=== PATIENT | female | born 1950 | race Caucasian/White ===

== ENCOUNTER 2019-11-15 20:03 | Inpatient (IN) | payer MEDICARE, BC ==
[~2019-11-15] VITALS: Ht 160 cm; Wt 50.0 kg
[2019-11-15] MEDS ORDERED: CefTRIAXone 2gm/D5W 50ml 50 ML IV ONE (20:25)
[2019-11-15] MEDS ORDERED: normal saline 1000ML IV soln IV ONE (20:25)
[2019-11-15] MEDS ORDERED: azithromycin/NS 500mg/250ml 250 ML IV ONE (20:30)
[2019-11-15 20:41] LABS: ALANINE AMINOTRANSFERASE 114 U/L (12-78); ALBUMIN 2.5 G/DL (3.4-5.0); ALBUMIN/GLOBULIN RATIO 0.8 (1.1-1.5); ALKALINE PHOSPHATASE 63 IU/L (46-116); ANION GAP 5 (8-16); ASPARTATE AMINO TRANSFERASE 88 U/L (10-37); BILIRUBIN,TOTAL 0.8 MG/DL (0.1-1.0); BLOOD UREA NITROGEN 11 MG/DL (7-18); BUN/CREATININE RATIO 12.5 (6.6-38.0); CALCIUM 7.8 MG/DL (8.5-10.1); CHLORIDE 103 MMOL/L (99-107); CREATININE 0.88 MG/DL (0.40-0.90); GLUCOSE 80 MG/DL (70-104); SODIUM 135 MMOL/L (135-145); TOTAL CARBON DIOXIDE 27.4 MMOL/L (24-32); TOTAL PROTEIN 5.5 G/DL (6.4-8.2); eGFR 64 ML/MIN
[2019-11-15 20:42] LABS: BASOPHILS % (AUTO) 0.5 % (0-1); EOSINOPHILS % (AUTO) 0.3 % (0-6); HEMATOCRIT 35.1 % (35.0-45.0); HEMOGLOBIN 12.3 g/dl (12.0-16.0); LYMPHOCYTES # (AUTO) 0.7 X10'3 (1.1-4.8); LYMPHOCYTES % (AUTO) 7.1 % (21-51); MEAN CORPUSCULAR HEMOGLOBIN 32.7 PG (27.0-31.0); MEAN CORPUSCULAR HGB CONC 35.1 g/dL (33.0-36.5); MEAN CORPUSCULAR VOLUME 93.2 FL (78-98); MEAN PLATELET VOLUME 8.7 FL (7.4-10.4); MONOCYTES # (AUTO) 1.2 X10'3 (0-0.9); MONOCYTES % (AUTO) 12.6 % (2-12); NEUTROPHILS # (AUTO) 7.4 X10'3 (1.8-7.7); NEUTROPHILS % (AUTO) 79.5 % (42-75); PLATELET COUNT 115 X10'3 (140-440); RED BLOOD COUNT 3.76 X10'6 (4.20-5.60); WHITE BLOOD COUNT 9.3 X10'3 (4.5-11.0)
[2019-11-15] MEDS ORDERED: oseltamivir phos 75mg capsule PO ONE (21:05)
[2019-11-15 21:25] LABS: CLARITY,URINE SLIGHTLY CLOUDY (Clear); COLOR,URINE YELLOW (Yellow); GLUCOSE, URINE NEGATIVE (Neg); KETONES,URINE NEGATIVE (Neg); LEUKOCYTE ESTERASE ,URINE NEGATIVE (Neg); NITRITES, URINE NEGATIVE (Neg); OCCULT BLOOD,URINE NEGATIVE (Neg); PH,URINE 6.5 (4.8-8.0); PROTEIN,URINE NEGATIVE (Neg); UROBILINOGEN,URINE 0.2 E.U/dL (0.2-1.0)
[2019-11-15 21:35] LABS: UA COLLECTION TYPE STRAIGHT CATH
[2019-11-15 21:39] LABS: BACTERIA,URINE NONE SEEN /HPF (Neg); MUCUS STRANDS FEW /LPF (Neg); RBC,URINE 0-2 /HPF (0-2); SQUAMOUS EPITHELIAL CELL,UR FEW /LPF (FEW); WBC,URINE 0-4 /HPF (0-4)
[2019-11-15 21:40] LABS: HYALINE CASTS 0-3 /LPF (NEGATIVE); RENAL CELLS, URINE FEW /HPF
[2019-11-15] MEDS ORDERED: RIBO1POW3 PO (22:10)
[2019-11-15] MEDS ORDERED: PROG100C16 PO (22:10)
[2019-11-15] MEDS ORDERED: MULT-1133 PO (22:10)
[2019-11-15] MEDS ORDERED: EST1T PO (22:10)
[2019-11-15] MEDS ORDERED: TEMA22.53 PO (22:10)
[2019-11-15] MEDS ORDERED: LIDO1ADH67 TD (22:10)
[2019-11-15] MEDS ORDERED: BUPR300T53 PO (22:10)
[2019-11-15] MEDS ORDERED: OMEG-143 PO (22:10)
[2019-11-15] MEDS ORDERED: GABA-532 PO ×2 (22:10)
[2019-11-15] MEDS ORDERED: PYRI50TA13 PO (22:10)
[2019-11-15] MEDS ORDERED: FEXO180T94 PO (22:10)
[2019-11-15] MEDS ORDERED: PHYT100T PO (22:10)
[2019-11-15] MEDS ORDERED: CHON100P3 PO (22:10)
[2019-11-15] MEDS ORDERED: TAPE75TA2 PO (22:10)
[2019-11-15] MEDS ORDERED: TURM538C PO (22:10)
[2019-11-15] MEDS ORDERED: QUER1POW PO (22:10)
[2019-11-15] MEDS ORDERED: MAGN400C PO (22:10)
[2019-11-15] MEDS ORDERED: OSC500T PO (22:10)
[2019-11-15] MEDS ORDERED: GLUC1TAB9 PO (22:10)
[2019-11-15] MEDS ORDERED: ASCO500C15 PO (22:10)
[2019-11-15] MEDS ORDERED: LORA-269 PO (22:10)
[2019-11-15] MEDS ORDERED: CYAN100019 PO (22:10)
[2019-11-15] MEDS ORDERED: CHOL400T14 PO (22:10)
[2019-11-15] MEDS ORDERED: magnesium hydroxide 30ml (MOM) UD suspension PO PRN (22:50)
[2019-11-15] MEDS ORDERED: morphine 2 MG/ML inj. syringe IV PRN ×2 (22:50)
[2019-11-15] MEDS ORDERED: mag hydrox/Alum hydrox/simeth 30ml oral suspension PO PRN (22:50)
[2019-11-15] MEDS ORDERED: magnesium 4gm in 100ml NS 100 ML IV PRN (22:50)
[2019-11-15] MEDS ORDERED: potassium Cl 20 mEq SR tablet PO PRN ×2 (22:50)
[2019-11-15] MEDS ORDERED: magnesium Cl slow-release 64mg tablet PO PRN (22:50)
[2019-11-15] MEDS ORDERED: ondansetron/PF 4mg/2ml inj IV PRN (22:50)
[2019-11-15] MEDS ORDERED: magnesium 2GM in 50ml NS 50 ML IV PRN (22:50)
[2019-11-15] MEDS ORDERED: potassium CL 10mEq/100ml bag 100 ML IV PRN ×2 (22:50)
[2019-11-15] MEDS ORDERED: temazepam 15mg capsule PO ONE (23:00)
--- NOTE | 2019-11-15 23:10 | NUR ---
Patient in room [facility]. I have received report from Yfn Parada Rn and had the opportunity to ask questions and will assume patient care upon arrival to the room. Addendum: 11/16/19 at 0145 by Raquel Garza RN Amended: Links added.
--- NOTE | 2019-11-15 23:15 | NUR ---
pt arrived to the floor and transferred from [facility] to bed with slide board and 4 people. tolerated well. then arrived to the room.
[2019-11-16] VITALS: BP 114/60
--- NOTE | 2019-11-16 00:40 | NUR ---
medicated for sleep pt now after numerous reminders not to take 02 off.
--- NOTE | 2019-11-16 02:09 | NUR ---
resting eyes closed with in reclining chair next to her bed. bed alarm on as pt forgetful and impulsive.
--- NOTE | 2019-11-16 03:23 | NUR ---
PT PUT ON FRACTURE LÓPEZ TO VOID AND UNABLE TO DO SO. BLADER SCAN FOR 152CC AND PT DECIDED WE WOULD TRY AGAIN UNABLE TO GET TO BEDSIDE COMMODE DUE TO PT TOO WEAL TO DO SO.
--- NOTE | 2019-11-16 04:45 | NUR ---
pt requestedto get up and walk to brp. pt too weak assisted up to bedside commode with 2 people so weak needed the 2. had large bm without urine. pt then bladder scanned to check for residual.
--- NOTE | 2019-11-16 05:10 | NUR ---
bladder scanned for 250cc of urine.
--- NOTE | 2019-11-16 05:12 | NUR ---
pt coughing non productively.
--- NOTE | 2019-11-16 05:25 | NUR ---
remains at bedside.
--- NOTE | 2019-11-16 06:09 | NUR ---
Problems reprioritized. Patient report given, questions answered & plan of care reviewed with YUMI MCKEON. Addendum: 11/16/19 at 0609 by Raquel Garza RN Amended: Links added.
--- NOTE | 2019-11-16 06:25 | NUR ---
Patient in room [facility]. I have received report from LINDA MOTTA and had the opportunity to ask questions and assume patient care.
[2019-11-16 06:30] LABS: BASOPHILS % (AUTO) 0.4 % (0-1); EOSINOPHILS % (AUTO) 0.1 % (0-6); HEMATOCRIT 36.2 % (35.0-45.0); HEMOGLOBIN 12.7 g/dl (12.0-16.0); LYMPHOCYTES # (AUTO) 0.7 X10'3 (1.1-4.8); LYMPHOCYTES % (AUTO) 7.5 % (21-51); MEAN CORPUSCULAR HEMOGLOBIN 32.8 PG (27.0-31.0); MEAN CORPUSCULAR VOLUME 93.8 FL (78-98); MEAN PLATELET VOLUME 9.2 FL (7.4-10.4); MONOCYTES % (AUTO) 10.5 % (2-12); NEUTROPHILS # (AUTO) 8.1 X10'3 (1.8-7.7); NEUTROPHILS % (AUTO) 81.5 % (42-75); PLATELET COUNT 127 X10'3 (140-440); RED BLOOD COUNT 3.86 X10'6 (4.20-5.60)
[2019-11-16 06:49] LABS: ALBUMIN 2.5 G/DL (3.4-5.0); ANION GAP 8 (8-16); BLOOD UREA NITROGEN 11 MG/DL (7-18); BUN/CREATININE RATIO 10.5 (6.6-38.0); CALCIUM 8.1 MG/DL (8.5-10.1); CHLORIDE 103 MMOL/L (99-107); CREATININE 1.05 MG/DL (0.40-0.90); GLUCOSE 74 MG/DL (70-104); POTASSIUM 4.2 MMOL/L (3.5-5.1); SODIUM 135 MMOL/L (135-145); TOTAL CARBON DIOXIDE 24.2 MMOL/L (24-32); eGFR 52 ML/MIN
[2019-11-16 07:00] VITALS: BP 84/54
[2019-11-16] MEDS ORDERED: GLUCOSAMINE HCL PO SCH (08:00)
[2019-11-16] MEDS: TAPENTADOL HCL PO SCH ×3 (08:00→22:23)
[2019-11-16] MEDS: K and/or MAG REPLACEMENT MC SCH ×2 (08:00→20:00)
[2019-11-16] MEDS ORDERED: QUERCETIN DIHYDRATE PO SCH (08:00)
[2019-11-16] MEDS ORDERED: calcium carbonate 500mg tablet PO SCH (08:00)
[2019-11-16] MEDS ORDERED: CHONDROITIN SULFATE A SODIUM PO SCH (08:00)
[2019-11-16] MEDS ORDERED: [UNRECOGNIZED DRUG - OTHER] PO SCH (08:00)
[2019-11-16] MEDS ORDERED: PHYTONADIONE PO SCH ×2 (08:00→08:30)
[2019-11-16] MEDS: LIDOcaine 5% patch TP SCH (08:00)
[2019-11-16] MEDS ORDERED: MSM PO SCH (08:00)
[2019-11-16] MEDS: PROGESTERONE MICRONIZED 100 MG PO SCH (08:00)
[2019-11-16] MEDS ORDERED: TURMERIC ROOT EXTRACT 1000 MG PO SCH (08:00)
[2019-11-16] MEDS: metroNIDAZOLE-Flagyl 500mg/NS 100 ML IV SCH ×2 (08:28→16:30)
[2019-11-16] MEDS: enoxaparin 40mg/0.4ml syringe SQ SCH (08:29)
[2019-11-16] MEDS: BUPROPION PO SCH (08:30)
[2019-11-16] MEDS: PHYTONADIONE PO SCH (08:30)
[2019-11-16] MEDS: magnesium oxide 400mg tablet PO SCH ×2 (08:31→21:03)
[2019-11-16] MEDS: multivitamins, therapeutics tablet PO SCH (08:31)
[2019-11-16] MEDS: OMEGA-3/DHA/EPA/FISH OIL 1 EACH CAPSULE.DR PO SCH (08:31)
[2019-11-16] MEDS: LORazepam 1 MG tablet PO SCH ×3 (08:31→21:04)
[2019-11-16] MEDS: vitamin D (cholecalciferol) 1,000 unit tablet PO SCH (08:31)
[2019-11-16] MEDS: pyridoxine 50mg tablet PO SCH (08:32)
[2019-11-16] MEDS: gabapentin 300mg capsule PO SCH ×2 (08:32→21:01)
[2019-11-16] MEDS: ascorbic acid 500mg tablet PO SCH ×2 (08:32→21:00)
[2019-11-16] MEDS: cyanocobalamin 500mcg tablet PO SCH (08:32)
[2019-11-16 11:00] VITALS: BP 88/44
[2019-11-16] MEDS: normal saline 1000ml 1,000 ML IV SCH (11:42)
[2019-11-16] MEDS: calcium carbonate 500mg tablet PO SCH ×4 (11:42→20:59)
[2019-11-16] MEDS: levoFLOXACIN-Levaquin 750MG/D5 150 ML IV SCH ×2 (12:04→16:36)
--- NOTE | 2019-11-16 16:37 | NUR ---
[facility] MED ADMINISTRATION: I DID NOT RELEASE CLAMP AND MED WAS NOT INFUSED
--- NOTE | 2019-11-16 18:25 | NUR ---
Problems reprioritized. Patient report given, questions answered & plan of care reviewed with LINDA LOPEZ.
--- NOTE | 2019-11-16 18:54 | NUR ---
Patient in room [facility]. I have received report from LINDA Soto and had the opportunity to ask questions and assume patient care.
[2019-11-16 20:00] VITALS: BP 106/60
[2019-11-16] MEDS ORDERED: CefTRIAXone 2gm/D5W 50ml 50 ML IV SCH (20:00)
[2019-11-16] MEDS: lactobacillus rhamnosus 10,000 MMU CELLS/CAPSULE PO SCH (20:58)
[2019-11-16] MEDS ORDERED: azithromycin 250mg tablet PO SCH (21:00)
[2019-11-16] MEDS: loratadine 10mg tablet PO SCH (21:03)
[2019-11-16] MEDS ORDERED: vancomycin/NS 1 GM ADD-VANTAGE 250 ML X 1 DOSE IV ONE (22:10)
[2019-11-16] MEDS: TEMAZEPAM PO SCH (22:23)
[2019-11-16] MEDS ORDERED: levoFLOXACIN-Levaquin 750MG/D5 150 ML IV SCH (22:23)
[2019-11-17] VITALS: BP 106/56
[2019-11-17] MEDS: piperacillin/tazo 3.375gm/50ml 50 ML IV SCH ×4 (00:20→21:46)
[2019-11-17] MEDS: normal saline 1000ml 1,000 ML IV SCH ×3 (02:11→18:51)
[2019-11-17 05:17] LABS: BASOPHILS % (AUTO) 0.6 % (0-1); EOSINOPHILS # (AUTO) 0.1 X10'3 (0-0.9); EOSINOPHILS % (AUTO) 0.7 % (0-6); HEMATOCRIT 31.9 % (35.0-45.0); HEMOGLOBIN 11.2 g/dl (12.0-16.0); LYMPHOCYTES # (AUTO) 0.7 X10'3 (1.1-4.8); LYMPHOCYTES % (AUTO) 8.8 % (21-51); MEAN CORPUSCULAR HEMOGLOBIN 32.3 PG (27.0-31.0); MEAN CORPUSCULAR HGB CONC 35.1 g/dL (33.0-36.5); MEAN CORPUSCULAR VOLUME 92.2 FL (78-98); MEAN PLATELET VOLUME 8.4 FL (7.4-10.4); MONOCYTES % (AUTO) 11.5 % (2-12); NEUTROPHILS # (AUTO) 6.6 X10'3 (1.8-7.7); NEUTROPHILS % (AUTO) 78.4 % (42-75); PLATELET COUNT 141 X10'3 (140-440); RED BLOOD COUNT 3.46 X10'6 (4.20-5.60); RED CELL DISTRIBUTION WIDTH 13.3 % (11.5-14.5); WHITE BLOOD COUNT 8.4 X10'3 (4.5-11.0)
[2019-11-17 05:33] LABS: ALBUMIN 1.9 G/DL (3.4-5.0); ANION GAP 7 (8-16); BLOOD UREA NITROGEN 9 MG/DL (7-18); CHLORIDE 107 MMOL/L (99-107); CREATININE 0.75 MG/DL (0.40-0.90); GLUCOSE 89 MG/DL (70-104); MAGNESIUM 1.9 MG/DL (1.5-2.4); POTASSIUM 4.1 MMOL/L (3.5-5.1); SODIUM 138 MMOL/L (135-145); TOTAL CARBON DIOXIDE 24.3 MMOL/L (24-32); eGFR 77 ML/MIN
--- NOTE | 2019-11-17 06:24 | NUR ---
Problems reprioritized. Patient report given, questions answered & plan of care reviewed with LINDA Soto.
--- NOTE | 2019-11-17 06:45 | NUR ---
Patient in room [facility]. I have received report from LINDA LOPEZ and had the opportunity to ask questions and assume patient care.
--- NOTE | 2019-11-17 06:59 | NUR ---
Patient in room [facility]. I have received report from LINDA LOPEZ and had the opportunity to ask questions and assume patient care.
[2019-11-17 07:00] VITALS: BP 100/54
[2019-11-17] MEDS: calcium carbonate 500mg tablet PO SCH ×4 (08:00→21:45)
[2019-11-17] MEDS: TAPENTADOL HCL PO SCH ×3 (08:00→21:46)
[2019-11-17] MEDS: LORazepam 1 MG tablet PO SCH ×3 (08:00→21:45)
[2019-11-17] MEDS: K and/or MAG REPLACEMENT MC SCH ×2 (08:00→20:00)
[2019-11-17] MEDS ORDERED: PHYTONADIONE PO SCH (08:00)
[2019-11-17] MEDS: LIDOcaine 5% patch TP SCH (08:00)
[2019-11-17] MEDS ORDERED: iohexol 350MG/ML 100ml bottle IV ONE (09:54)
[2019-11-17 11:00] VITALS: BP 105/54
[2019-11-17] MEDS: BUPROPION PO SCH (11:19)
[2019-11-17] MEDS: PHYTONADIONE PO SCH (11:20)
[2019-11-17] MEDS: PROGESTERONE MICRONIZED 100 MG PO SCH (11:21)
[2019-11-17] MEDS: multivitamins, therapeutics tablet PO SCH (11:22)
[2019-11-17] MEDS: ascorbic acid 500mg tablet PO SCH ×2 (11:23→20:08)
[2019-11-17] MEDS: cyanocobalamin 500mcg tablet PO SCH (11:23)
[2019-11-17] MEDS: pyridoxine 50mg tablet PO SCH (11:23)
[2019-11-17] MEDS: enoxaparin 40mg/0.4ml syringe SQ SCH (11:28)
[2019-11-17] MEDS: magnesium oxide 400mg tablet PO SCH ×2 (11:28→20:08)
[2019-11-17] MEDS: lactobacillus rhamnosus 10,000 MMU CELLS/CAPSULE PO SCH ×2 (11:28→20:08)
[2019-11-17] MEDS: OMEGA-3/DHA/EPA/FISH OIL 1 EACH CAPSULE.DR PO SCH (11:29)
[2019-11-17] MEDS: gabapentin 300mg capsule PO SCH ×2 (11:29→21:45)
[2019-11-17] MEDS: vitamin D (cholecalciferol) 1,000 unit tablet PO SCH (11:52)
[2019-11-17] MEDS: VANCOMYCIN 750MG IV in NS 250 ML IV SCH (12:30)
--- NOTE | 2019-11-17 18:47 | NUR ---
Problems reprioritized. Patient report given, questions answered & plan of care reviewed with LINDA ARREGUIN.
--- NOTE | 2019-11-17 18:47 | NUR ---
Patient in room [facility]. I have received report from LINDA Soto and had the opportunity to ask questions and assume patient care. Addendum: 11/17/19 at 1847 by Petra Franco RN Amended: Links added.
[2019-11-17 20:00] VITALS: BP 121/66
[2019-11-17] MEDS: loratadine 10mg tablet PO SCH (21:45)
[2019-11-17] MEDS: TEMAZEPAM PO SCH (21:46)
[2019-11-17] MEDS ORDERED: VANCOMYCIN 750MG IV in NS 250 ML IV SCH (22:00)
[2019-11-18] VITALS: BP 120/69
[2019-11-18] MEDS: VANCOMYCIN 750MG IV in NS 250 ML IV SCH (00:28)
[2019-11-18] MEDS: normal saline 1000ml 1,000 ML IV SCH ×2 (04:30→14:42)
[2019-11-18] MEDS: piperacillin/tazo 3.375gm/50ml 50 ML IV SCH (04:54)
[2019-11-18 05:35] LABS: BASOPHILS # (AUTO) 0.1 X10'3 (0-0.2); EOSINOPHILS # (AUTO) 0.1 X10'3 (0-0.9); EOSINOPHILS % (AUTO) 1.3 % (0-6); HEMATOCRIT 35.3 % (35.0-45.0); HEMOGLOBIN 12.3 g/dl (12.0-16.0); LYMPHOCYTES # (AUTO) 1.2 X10'3 (1.1-4.8); LYMPHOCYTES % (AUTO) 13.3 % (21-51); MEAN CORPUSCULAR HEMOGLOBIN 32.5 PG (27.0-31.0); MEAN CORPUSCULAR VOLUME 92.8 FL (78-98); MEAN PLATELET VOLUME 7.9 FL (7.4-10.4); MONOCYTES % (AUTO) 11.2 % (2-12); NEUTROPHILS # (AUTO) 6.9 X10'3 (1.8-7.7); NEUTROPHILS % (AUTO) 73.2 % (42-75); PLATELET COUNT 189 X10'3 (140-440); RED CELL DISTRIBUTION WIDTH 13.3 % (11.5-14.5); WHITE BLOOD COUNT 9.4 X10'3 (4.5-11.0)
[2019-11-18 05:48] LABS: ANION GAP 6 (8-16); BLOOD UREA NITROGEN 11 MG/DL (7-18); BUN/CREATININE RATIO 13.8 (6.6-38.0); CALCIUM 8.6 MG/DL (8.5-10.1); CHLORIDE 108 MMOL/L (99-107); GLUCOSE 75 MG/DL (70-104); LACTATE DEHYDROGENASE 268 U/L (81-234); MAGNESIUM 1.9 MG/DL (1.5-2.4); POTASSIUM 3.8 MMOL/L (3.5-5.1); SODIUM 139 MMOL/L (135-145); TOTAL CARBON DIOXIDE 25.5 MMOL/L (24-32); eGFR 71 ML/MIN
--- NOTE | 2019-11-18 06:24 | NUR ---
Problems reprioritized. Patient report given, questions answered & plan of care reviewed with LINDA Lamb.
--- NOTE | 2019-11-18 06:26 | NUR ---
Patient in room [facility]. I have received report from Jody Ray RN and had the opportunity to ask questions and assume patient care.
[2019-11-18 07:30] VITALS: BP 99/47
[2019-11-18] MEDS: multivitamins, therapeutics tablet PO SCH (07:45)
[2019-11-18] MEDS: cyanocobalamin 500mcg tablet PO SCH (07:45)
[2019-11-18] MEDS: magnesium oxide 400mg tablet PO SCH ×2 (07:45→20:56)
[2019-11-18] MEDS: gabapentin 300mg capsule PO SCH ×2 (07:45→20:56)
[2019-11-18] MEDS: OMEGA-3/DHA/EPA/FISH OIL 1 EACH CAPSULE.DR PO SCH (07:45)
[2019-11-18] MEDS: lactobacillus rhamnosus 10,000 MMU CELLS/CAPSULE PO SCH ×2 (07:45→20:55)
[2019-11-18] MEDS: vitamin D (cholecalciferol) 1,000 unit tablet PO SCH (07:46)
[2019-11-18] MEDS: calcium carbonate 500mg tablet PO SCH ×4 (07:46→20:56)
[2019-11-18] MEDS: LORazepam 1 MG tablet PO SCH ×3 (07:46→20:55)
[2019-11-18] MEDS: ascorbic acid 500mg tablet PO SCH ×2 (07:46→20:56)
[2019-11-18] MEDS: pyridoxine 50mg tablet PO SCH (07:46)
[2019-11-18] MEDS: BUPROPION PO SCH (07:47)
[2019-11-18] MEDS: PROGESTERONE MICRONIZED 100 MG PO SCH (07:47)
[2019-11-18] MEDS: PHYTONADIONE PO SCH (07:48)
[2019-11-18] MEDS: LIDOcaine 5% patch TP SCH (08:00)
[2019-11-18] MEDS: K and/or MAG REPLACEMENT MC SCH ×2 (08:00→20:00)
[2019-11-18] MEDS: enoxaparin 40mg/0.4ml syringe SQ SCH (08:00)
[2019-11-18] MEDS: benzonatate 100mg capsule PO PRN ×2 (08:15→20:55)
[2019-11-18] MEDS: TAPENTADOL HCL PO SCH ×4 (09:16→22:09)
[2019-11-18 11:21] VITALS: BP 99/47
[2019-11-18 11:30] VITALS: BP 104/52
[2019-11-18 11:46] VITALS: BP 111/64
--- NOTE | 2019-11-18 12:12 | NUR ---
Patient finished thoracentesis procedure, vital signs stable at 98.2 temp, HR at 70, RR 16, O2 at 95% on 2 L O2, BP 106/61 and reports no pain. patient tolerated well.
[2019-11-18 12:29] LABS: BFSOURCE RIGHT PLEURAL FLD; PLEURAL FLUID PH 7.448 (7.63-7.65)
[2019-11-18] MEDS ORDERED: levoFLOXACIN-Levaquin 750MG/D5 150 ML IV SCH (12:30)
[2019-11-18 12:37] LABS: GLUCOSE,BODY FLUID 95 MG/DL; LDH,BODY FLUID 191 U/L
[2019-11-18 13:28] LABS: BASOPHILS,BODY FLUID 1 %; LYMPHOCYTES,BODY FLUID 43 %; MONOCYTES,BODY FLUID 4 %; NEUTROPHILS,BODY FLUID 52 %
[2019-11-18 13:36] LABS: BFAPPEAR CLOUDY
[2019-11-18 13:37] LABS: BFCOLOR OTHER
[2019-11-18 13:38] LABS: BF RBC COUNT 7300 /CU MM; BF WBC COUNT 260 /CU MM (0-1000); BFVOLUME 58 ML
[2019-11-18 13:50] LABS: TOTAL PROTEIN,BODY FLUID < 2.0 G/DL
[2019-11-18] MEDS: levoFLOXACIN 750MG TABLET PO SCH (16:19)
[2019-11-18] MEDS ORDERED: albuterol 2.5 MG/3 ML nebule NEB PRN (16:25)
[2019-11-18 18:00] VITALS: BP 169/93
--- NOTE | 2019-11-18 18:20 | NUR ---
Patient in room [facility]. I have received report from LINDA Casillas and had the opportunity to ask questions and assume patient care.
[2019-11-18] MEDS: loratadine 10mg tablet PO SCH (20:56)
[2019-11-18] MEDS: TEMAZEPAM PO SCH (22:09)
[2019-11-18] MEDS ORDERED: VANCOMYCIN LEVEL IV ONE (23:30)
[2019-11-19 00:45] VITALS: BP 119/71
[2019-11-19] MEDS: normal saline 1000ml 1,000 ML IV SCH ×2 (03:06→15:50)
[2019-11-19] MEDS: benzonatate 100mg capsule PO PRN ×2 (05:33→21:02)
[2019-11-19 06:15] LABS: BASOPHILS % (AUTO) 0.6 % (0-1); EOSINOPHILS # (AUTO) 0.1 X10'3 (0-0.9); HEMATOCRIT 31.8 % (35.0-45.0); HEMOGLOBIN 11.1 g/dl (12.0-16.0); MEAN CORPUSCULAR HEMOGLOBIN 32.1 PG (27.0-31.0); MEAN CORPUSCULAR HGB CONC 34.8 g/dL (33.0-36.5); MEAN CORPUSCULAR VOLUME 92.3 FL (78-98); MEAN PLATELET VOLUME 7.5 FL (7.4-10.4); MONOCYTES # (AUTO) 0.8 X10'3 (0-0.9); MONOCYTES % (AUTO) 11.3 % (2-12); NEUTROPHILS # (AUTO) 5.5 X10'3 (1.8-7.7); NEUTROPHILS % (AUTO) 73.1 % (42-75); PLATELET COUNT 220 X10'3 (140-440); RED BLOOD COUNT 3.44 X10'6 (4.20-5.60); RED CELL DISTRIBUTION WIDTH 13.2 % (11.5-14.5); WHITE BLOOD COUNT 7.5 X10'3 (4.5-11.0)
--- NOTE | 2019-11-19 06:20 | NUR ---
Problems reprioritized. Patient report given, questions answered & plan of care reviewed with LINDA Casillas.
--- NOTE | 2019-11-19 06:23 | NUR ---
Patient in room [facility]. I have received report from LINDA Gamez and had the opportunity to ask questions and assume patient care.
[2019-11-19 06:51] LABS: ALBUMIN 1.7 G/DL (3.4-5.0); ANION GAP 10 (8-16); BLOOD UREA NITROGEN 7 MG/DL (7-18); BUN/CREATININE RATIO 10.4 (6.6-38.0); CALCIUM 8.1 MG/DL (8.5-10.1); CHLORIDE 109 MMOL/L (99-107); CREATININE 0.67 MG/DL (0.40-0.90); GLUCOSE 72 MG/DL (70-104); MAGNESIUM 1.8 MG/DL (1.5-2.4); POTASSIUM 3.6 MMOL/L (3.5-5.1); SODIUM 144 MMOL/L (135-145); TOTAL CARBON DIOXIDE 24.6 MMOL/L (24-32); eGFR 88 ML/MIN
[2019-11-19 07:20] VITALS: BP 113/60
[2019-11-19] MEDS: BUPROPION PO SCH (07:51)
[2019-11-19] MEDS: PROGESTERONE MICRONIZED 100 MG PO SCH (07:51)
[2019-11-19] MEDS: PHYTONADIONE PO SCH (07:51)
[2019-11-19] MEDS: vitamin D (cholecalciferol) 1,000 unit tablet PO SCH (07:51)
[2019-11-19] MEDS: lactobacillus rhamnosus 10,000 MMU CELLS/CAPSULE PO SCH ×2 (07:51→21:03)
[2019-11-19] MEDS: LORazepam 1 MG tablet PO SCH ×3 (07:52→21:02)
[2019-11-19] MEDS: calcium carbonate 500mg tablet PO SCH ×4 (07:52→21:02)
[2019-11-19] MEDS: pyridoxine 50mg tablet PO SCH (07:52)
[2019-11-19] MEDS: OMEGA-3/DHA/EPA/FISH OIL 1 EACH CAPSULE.DR PO SCH (07:52)
[2019-11-19] MEDS: gabapentin 300mg capsule PO SCH ×2 (07:52→21:04)
[2019-11-19] MEDS: cyanocobalamin 500mcg tablet PO SCH (07:52)
[2019-11-19] MEDS: magnesium oxide 400mg tablet PO SCH ×2 (07:52→21:03)
[2019-11-19] MEDS: ascorbic acid 500mg tablet PO SCH ×2 (07:52→21:03)
[2019-11-19] MEDS: multivitamins, therapeutics tablet PO SCH (07:58)
[2019-11-19] MEDS: K and/or MAG REPLACEMENT MC SCH ×2 (08:00→20:00)
[2019-11-19] MEDS: LIDOcaine 5% patch TP SCH (08:00)
[2019-11-19] MEDS: enoxaparin 40mg/0.4ml syringe SQ SCH (08:00)
[2019-11-19] MEDS: TAPENTADOL HCL PO SCH ×3 (09:22→21:01)
[2019-11-19 11:30] VITALS: BP 100/60
[2019-11-19] MEDS: levoFLOXACIN 750MG TABLET PO SCH (11:33)
--- NOTE | 2019-11-19 13:45 | NUR ---
Pt asleep for 1300 tapentadol dose. Family member at bedside requested for me to not wake pt up and wait till later to administer medication. Family member instructed to let us know when pt it awake and ready for medication. Will continue to monitor.
[2019-11-19 18:00] VITALS: BP 139/76
--- NOTE | 2019-11-19 18:33 | NUR ---
Problems reprioritized. Patient report given, questions answered & plan of care reviewed with LINDA Gamez.
--- NOTE | 2019-11-19 18:34 | NUR ---
Patient in room [facility]. I have received report from LINDA Casillas and had the opportunity to ask questions and assume patient care.
[2019-11-19] MEDS: TEMAZEPAM PO SCH (21:01)
[2019-11-19] MEDS: loratadine 10mg tablet PO SCH (21:03)
[2019-11-20] VITALS: BP 105/58
[2019-11-20] MEDS: normal saline 1000ml 1,000 ML IV SCH ×3 (01:05→18:10)
[2019-11-20 05:34] LABS: ANION GAP 6 (8-16); BLOOD UREA NITROGEN 6 MG/DL (7-18); CHLORIDE 109 MMOL/L (99-107); CREATININE 0.66 MG/DL (0.40-0.90); GLUCOSE 72 MG/DL (70-104); POTASSIUM 3.2 MMOL/L (3.5-5.1); SODIUM 142 MMOL/L (135-145); TOTAL CARBON DIOXIDE 27.1 MMOL/L (24-32)
[2019-11-20 05:35] LABS: ALBUMIN 1.8 G/DL (3.4-5.0); BUN/CREATININE RATIO 9.1 (6.6-38.0); CALCIUM 8.2 MG/DL (8.5-10.1); MAGNESIUM 1.7 MG/DL (1.5-2.4); eGFR 89 ML/MIN
[2019-11-20 05:41] LABS: BASOPHILS % (AUTO) 0.7 % (0-1); EOSINOPHILS # (AUTO) 0.2 X10'3 (0-0.9); HEMATOCRIT 32.1 % (35.0-45.0); LYMPHOCYTES # (AUTO) 1.2 X10'3 (1.1-4.8); LYMPHOCYTES % (AUTO) 16.8 % (21-51); MEAN CORPUSCULAR HEMOGLOBIN 32.2 PG (27.0-31.0); MEAN CORPUSCULAR HGB CONC 34.4 g/dL (33.0-36.5); MEAN CORPUSCULAR VOLUME 93.3 FL (78-98); MEAN PLATELET VOLUME 7.4 FL (7.4-10.4); MONOCYTES # (AUTO) 0.7 X10'3 (0-0.9); MONOCYTES % (AUTO) 9.7 % (2-12); NEUTROPHILS # (AUTO) 4.9 X10'3 (1.8-7.7); NEUTROPHILS % (AUTO) 69.8 % (42-75); PLATELET COUNT 227 X10'3 (140-440); RED BLOOD COUNT 3.44 X10'6 (4.20-5.60); RED CELL DISTRIBUTION WIDTH 13.7 % (11.5-14.5)
--- NOTE | 2019-11-20 06:22 | NUR ---
Patient in room [facility]. I have received report from Franco MCKEON and had the opportunity to ask questions and assume patient care.
--- NOTE | 2019-11-20 06:24 | NUR ---
Problems reprioritized. Patient report given, questions answered & plan of care reviewed with LINDA Arshad.
[2019-11-20 08:00] VITALS: BP 124/62
[2019-11-20] MEDS: LIDOcaine 5% patch TP SCH (08:00)
[2019-11-20] MEDS: K and/or MAG REPLACEMENT MC SCH ×2 (08:00→20:00)
[2019-11-20] MEDS: PHYTONADIONE PO SCH (08:37)
[2019-11-20] MEDS: TAPENTADOL HCL PO SCH ×3 (08:37→20:32)
[2019-11-20] MEDS: BUPROPION PO SCH (08:37)
[2019-11-20] MEDS: lactobacillus rhamnosus 10,000 MMU CELLS/CAPSULE PO SCH ×2 (08:38→20:35)
[2019-11-20] MEDS: PROGESTERONE MICRONIZED 100 MG PO SCH (08:38)
[2019-11-20] MEDS: LORazepam 1 MG tablet PO SCH ×3 (08:38→20:37)
[2019-11-20] MEDS: pyridoxine 50mg tablet PO SCH (08:38)
[2019-11-20] MEDS: magnesium oxide 400mg tablet PO SCH ×2 (08:38→20:37)
[2019-11-20] MEDS: calcium carbonate 500mg tablet PO SCH ×4 (08:39→20:36)
[2019-11-20] MEDS: ascorbic acid 500mg tablet PO SCH ×2 (08:39→20:37)
[2019-11-20] MEDS: gabapentin 300mg capsule PO SCH ×2 (08:39→20:36)
[2019-11-20] MEDS: multivitamins, therapeutics tablet PO SCH (08:39)
[2019-11-20] MEDS: vitamin D (cholecalciferol) 1,000 unit tablet PO SCH (08:39)
[2019-11-20] MEDS: cyanocobalamin 500mcg tablet PO SCH (08:39)
[2019-11-20] MEDS: enoxaparin 40mg/0.4ml syringe SQ SCH (08:41)
[2019-11-20] MEDS: OMEGA-3/DHA/EPA/FISH OIL 1 EACH CAPSULE.DR PO SCH (08:59)
--- NOTE | 2019-11-20 09:10 | NUR ---
O2 Sat at rest on room air:_83__% If below 89%: Recovery O2 Sat at rest on _3__LPM:___%:_91__% via__nasal Canula (mask/nasal cannula, etc..) No further documentation is necessary. If O2 Sat did not drop below 89% on room air,ambulate patient on room air. O2 Sat while ambulating on room air:___% Recovery O2 Sat while ambulating on ___LPM:___% No further documentation is necessary. If patient does not drop below 89% while ambulating, he/she does not qualify for home O2. Pt walked to bathroom 8-10ft without O2, Stats dropped to 77%, back to 90% after she sat down and O2 was put back on. Backt to 95% after a few deep breaths. Pt has been stating on the mid-upper 90's with o2 on 3L.
[2019-11-20] MEDS: benzonatate 100mg capsule PO PRN ×2 (10:24→20:37)
[2019-11-20 11:00] VITALS: BP 143/64
[2019-11-20] MEDS ORDERED: potassium CL 10mEq/100ml bag 100 ML IV PRN (12:50)
[2019-11-20] MEDS ORDERED: potassium Cl 20 mEq SR tablet PO PRN (12:50)
--- NOTE | 2019-11-20 14:38 | NUR ---
Initial: Pt admit with PNA and metabolic encephalopathy from PNA and sepsis, which has since resolved. Pt s/p thoracentesis with report of 470 mL fluid removed. Pt on a heart healthy diet documented with 25-50% PO intake not meeting nutrient needs. Pt and SO seen at bedside. Pt reports low appetite since admit and states she has been having a difficult time with her meals as she follows a specific diet at home and does not eat red meat or strawberries. All food preferences were d/w dietary, see below. Pt reports low PO intake is also r/t being unavailable during meal times d/t testing. Informed pt/SO about the ability to order a late tray if needed. Pt provided with alternative heart healthy menu to provide additional food options and RD contact information. Pt denies food allergies, difficulty chewing/swallowing, or constipation/diarrhea. LBM 11/20. Will continue to follow. Recommendations: 1) Continue heart healthy diet 2) Encourage PO intake 3) Downs food preferences: No beef, pork, or strawberries; chicken and fish are okay; F/V on all meals; Beninese yogurt QD at dinner 4) Bowel care PRN 5) Wt per rx Addendum: 11/20/19 at [address] Amended: Links added.
[2019-11-20] MEDS: potassium Cl 20 mEq SR tablet PO PRN ×2 (15:05→20:37)
[2019-11-20] MEDS: levoFLOXACIN 750MG TABLET PO SCH (15:06)
[2019-11-20 15:26] LABS: ABG BASE EXCESS 0.7 mmol/L (-2.0-3.0); ABG HCO3 24.1 mmol/L (22.0-26.0); ABG OXYGEN SATURATION 91.1 % (95-98); ABG PCO2 (T) 34.6 mmHg (35.0-45.0); ABG PO2 (T) 56.8 mmHg (83-108); ALLEN'S TEST Positive; FCOHb 0.3 % (0.5-1.5); FMetHb 0.2 % (0.3-1.12); FO2Hb 90.6 % (94-100); TOTAL HEMOGLOBIN 13.1 G/dl (12.0-16.0)
[2019-11-20 18:00] VITALS: BP 126/66
--- NOTE | 2019-11-20 18:36 | NUR ---
Problems reprioritized. Patient report given, questions answered & plan of care reviewed with Franco MCKEON.
--- NOTE | 2019-11-20 18:37 | NUR ---
Patient in room [facility]. I have received report from LINDA Arshad and had the opportunity to ask questions and assume patient care.
[2019-11-20] MEDS: TEMAZEPAM PO SCH (20:32)
[2019-11-20] MEDS: loratadine 10mg tablet PO SCH (20:37)
[2019-11-21] VITALS: BP 106/61
[2019-11-21] MEDS: potassium Cl 20 mEq SR tablet PO PRN (00:58)
[2019-11-21] MEDS: benzonatate 100mg capsule PO PRN (04:30)
[2019-11-21 05:19] LABS: MAGNESIUM 1.7 MG/DL (1.5-2.4); POTASSIUM 3.9 MMOL/L (3.5-5.1)
--- NOTE | 2019-11-21 06:10 | NUR ---
Problems reprioritized. Patient report given, questions answered & plan of care reviewed with LINDA Arshad.
--- NOTE | 2019-11-21 06:33 | NUR ---
Patient in room [facility]. I have received report from Nya MCKEON and had the opportunity to ask questions and assume patient care.
[2019-11-21 08:00] VITALS: BP 117/69
[2019-11-21] MEDS: enoxaparin 40mg/0.4ml syringe SQ SCH (08:00)
[2019-11-21] MEDS: LIDOcaine 5% patch TP SCH (08:00)
[2019-11-21] MEDS: K and/or MAG REPLACEMENT MC SCH (08:00)
[2019-11-21] MEDS: TAPENTADOL HCL PO SCH (08:06)
[2019-11-21] MEDS: PROGESTERONE MICRONIZED 100 MG PO SCH (08:06)
[2019-11-21] MEDS: BUPROPION PO SCH (08:06)
[2019-11-21] MEDS: PHYTONADIONE PO SCH (08:07)
[2019-11-21] MEDS: magnesium oxide 400mg tablet PO SCH (08:07)
[2019-11-21] MEDS: LORazepam 1 MG tablet PO SCH (08:07)
[2019-11-21] MEDS: ascorbic acid 500mg tablet PO SCH (08:07)
[2019-11-21] MEDS: gabapentin 300mg capsule PO SCH (08:08)
[2019-11-21] MEDS: pyridoxine 50mg tablet PO SCH (08:08)
[2019-11-21] MEDS: calcium carbonate 500mg tablet PO SCH (08:08)
[2019-11-21] MEDS: lactobacillus rhamnosus 10,000 MMU CELLS/CAPSULE PO SCH (08:09)
[2019-11-21] MEDS: vitamin D (cholecalciferol) 1,000 unit tablet PO SCH (08:09)
[2019-11-21] MEDS: multivitamins, therapeutics tablet PO SCH (08:09)
[2019-11-21] MEDS: cyanocobalamin 500mcg tablet PO SCH (08:09)
[2019-11-21] MEDS: OMEGA-3/DHA/EPA/FISH OIL 1 EACH CAPSULE.DR PO SCH (08:09)
--- NOTE | 2019-11-21 10:30 | NUR ---
PT DID NOT DROP BELOW 90% WHILE AMBULATING. SHE IS IN ROOM AIR STATING AT 90-91%
[2019-11-21] MEDS: levoFLOXACIN 750MG TABLET PO SCH (11:03)
[2019-11-21] MEDS ORDERED: LEVO750T46 PO (11:32)
[2019-11-21] MEDS ORDERED: ALBU8HFA PO (11:32)
[2019-11-21] MEDS ORDERED: FURO20TA4 PO (11:59)
--- NOTE | 2019-11-21 12:35 | NUR ---
Pt DC to home with . pt walked a 150 ft with out O@ and stats held at 91% without O2. Pt and verbalized understanding of all DC orders and directions. Pt was given antibiotics, Lasix and albuterol inhaler. Meds were efaxed to [facility] in [place]. Pt's belongings were packed and carried out by . Pt was wheeled out to via wheel chair by a staff member. They were very happy to leave. :)
== END 2019-11-21 12:30 | disposition home or self-care (01) | DRG 871 ==
LOC: ER 20:04 → SUR 3N 23:31 → CMPBEDREQ 23:59
PROVIDERS: ADMIT Hospitalist; ATTEND Internal Medicine
PROC: 0W993ZX Drainage of Right Pleural Cavity, Percutaneous Approach, Diagnostic (ICD-10-PCS; principal; 2019-11-18)
DX: A41.9 Sepsis, unspecified organism (principal); J18.1 Lobar pneumonia, unspecified organism; G93.41 Metabolic encephalopathy; J96.90 Respiratory failure, unspecified, unspecified whether with hypoxia or hypercapnia; J91.8 Pleural effusion in other conditions classified elsewhere; G89.4 Chronic pain syndrome; E87.6 Hypokalemia; Z79.899 Other long term (current) drug therapy; Z88.8 Allergy status to other drugs, medicaments and biological substances
CPT/HCPCS: 32555; 36415; 36600; 71045; 71275; 80048; 80053; 80202; 81001; 82803; 82945; 83605; 83615; 83735; 83986; 84132; 84145; 84157; 85018; 85025; 87040; 87070; 87081; 87502; 87503; 89051; 93005; 93306; 94640; 94760; 96365; 96368; 97110; 97116; 97161; 97530; 99291; G0378; J0456; J0696; J1650; J1956; J2405; J2543; J3370; J3490; J7030; J7050; Q9967

== ENCOUNTER 2025-05-13 07:53 | Emergency (ER) | payer MEDICARE, BC ==
[~2025-05-13] VITALS: Ht 160 cm; Wt 50.0 kg
[~2025-05-13 07:53] MED LIST: ASCO500C18 PO; BUPR300T53 PO; CHOL400T14 PO; CHON100P3 PO; CYAN100019 PO; EST1T PO; FEXO180T94 PO; FURO20TA4 PO; GABA-532 PO; GLUC1TAB9 PO; LEVO750T68 PO; LIDO1ADH67 TD; LORA-269 PO; MAGN400C PO; MULT-1133 PO; OMEG-143 PO; OSC500T PO; PHYT100T PO; PROG100C37 PO; PYRI-3 PO; QUER1POW PO; RIBO1POW3 PO; TAPE75TA2 PO; TURM538C PO
--- NOTE | 2025-05-13 08:54 | Physician Documentation ---
History of Present Illness ~ Chief Complaint: Flu Symptoms Stated Complaint: WEAKNESS Time Seen by MD: 08:46 OK to notify your PCP?: No Mode of Arrival: POV HPI 75-year-old female presents to the ED with a complaint of a ground level fall yesterday evening which she believes is secondary to developing cold/flu-like symptoms over the last 4-5 days. States she has felt more weak than normal. When she had her fall she denied any injury or head strikes. Denies any history of smoking. Reports feeling febrile. Denies nausea vomiting diarrhea Day of Onset: May 13, 2025 Medication Reconciliation Allergies: Coded Allergies: acetaminophen (Verified Allergy, Unknown, 05/13/25) aspirin (Verified Allergy, Unknown, 05/13/25) baclofen (Verified Allergy, Unknown, 05/13/25) cyclobenzaprine (Verified Allergy, Unknown, 05/13/25) ibuprofen (Verified Allergy, Unknown, 05/13/25) naproxen (Verified Allergy, Unknown, 05/13/25) Scheduled Ascorbic Acid (Vitamin C), 1 CAP PO BID, (Reported) Azithromycin (Azithromycin), 1 TAB PO UD Bupropion HCl (Wellbutrin Xl), 1 TAB PO DAILY, (Reported) Calcium Carbonate* (Oscal*), 300 MG PO QID, (Reported) Cholecalciferol (Vitamin D3), 5,000 UDTAB PO DAILY, (Reported) Chondroitin Sulfate A Sodium (Chondroitin Sulfate), 600 MG PO BID, (Reported) Cyanocobalamin (Vitamin B-12) (Vitamin B-12), 1 TABLET PO DAILY, (Reported) Estradiol* (Estrace*), 0.5 MG PO DAILY, (Reported) Fexofenadine* (Katie*), 1 TAB PO QPM, (Reported) Furosemide (Furosemide), 1 TAB PO DAILY Gabapentin (Gabapentin), 1 CAP PO QAM, NOON, (Reported) Gabapentin (Gabapentin), 3 CAP PO HS, (Reported) Glucosamine HCl/MSM (Sm Glucosamine & MSM Tablet), 1,500 MG PO BID, (Reported) Levofloxacin (Levofloxacin), 500 MG PO DAILY Lidocaine (Lidocaine Pain Relief), 1 PATCH TD DAILY, (Reported) Lorazepam (Ativan), 1 TAB PO TID, (Reported) Magnesium Oxide (Magnesium), 600 MG PO BID, (Reported) Multivits-Min/Iron/FA/Lutein (Centrum Silver Women Tablet), 1 TAB PO DAILY, (Reported) [place]-3/Dha/Epa/Fish Oil ([place] 3 500 Softgel), 2,265 MG PO DAILY, (Reported) Phytonadione (Vitamin K), 45 MCG PO DAILY, (Reported) Prednisone (Prednisone), 1 TAB PO BID Progesterone,Micronized (Prometrium capsule), 1 CAP PO DAILY, (Reported) Pyridoxine Hcl (Vitamin B-6), 100 MG PO DAILY, (Reported) Quercetin Dihydrate (Quercetin Dihydrate), 250 MG PO BID, (Reported) Ribose (D-Ribose), 1 TSP PO TID, (Reported) Tapentadol HCl (Nucynta), 25 MG PO TID, (Reported) Turmeric Root Extract (Turmeric), 1,000 MG PO DAILY, (Reported) Review of Systems All Other Systems at this time: Reviewed and Negative ROS As stated above in the HPI, otherwise all systems are reviewed and negative. Physical Exam Vital Signs: Temperature: 100.3, Source: Temporal, Heart Rate: 83, Respiratory Rate: 18, BP: 104/42, Pulse Oximetry: 97, Weight: 50.000 Oxygen Flow Rate: 0 Physical Exam General: Alert, no apparent distress. Respiratory: diminshed lung sound Chest: No accessory muscle use. Extremities: Normal range of motion, no deformity. Neurologic: Oriented x4. Psychiatric: Normal mood and affect. Skin: Normal color, warm and dry. No edema, no ecchymosis. Progress Results/Orders Results/Orders Orders - SELVIN TARANGO BLUEBERRY GROWER Culture Blood (05/13/25 08:54) Saline Lock (05/13/25 08:54) Oxygen (05/13/25 08:54) Chest,Single View (05/13/25 08:54) Completed Orders - SELVIN TARANGO BLUEBERRY GROWER Cbc/Diff (05/13/25 08:54) BMP (05/13/25 08:54) PBNP (05/13/25 08:54) Lacticsepsis (05/13/25 08:54) Chest,Single View (05/13/25 08:54) Normal Saline 1000ml (Sodium Chloride 10 (05/13/25 10:00) Vital Signs 6/13/05/13/25 05/13/25 05/13/25 08:07 08:39 09:46 10:26 Temp 100.3 100.3 Pulse 83 57 56 Resp 16 18 12 14 B/P (MAP) 104/42 88/52 (64) 98/56 (70) Pulse Ox 97 97 97 O2 Flow Rate 0 0 0 05/13/25 11:49 Temp 100.3 Pulse 52 Resp 18 B/P (MAP) 97/44 Pulse Ox 96 Laboratory Tests Test 05/13/25 09:22 White Blood Count 5.7 Red Blood Count 4.43 Hemoglobin 13.3 Hematocrit 39.3 Mean Corpuscular Volume 88.8 Mean Corpuscular Hemoglobin 30.0 Mean Corpuscular Hemoglobin Concent 33.8 Red Cell Distribution Width 14.1 Platelet Count 96 L Mean Platelet Volume 9.2 Neutrophils (%) (Auto) 59.6 Lymphocytes (%) (Auto) 20.2 L Monocytes (%) (Auto) 19.8 H Eosinophils (%) (Auto) 0 Basophils (%) (Auto) 0.4 Neutrophils # (Auto) 3.4 Lymphocytes # (Auto) 1.2 Monocytes # (Auto) 1.1 H Eosinophils # (Auto) 0.0 Basophils # (Auto) 0.0 CBC Comment Sodium Level 143 Potassium Level 3.9 Chloride Level 104 Carbon Dioxide Level 28.4 Anion Gap 11 Blood Urea Nitrogen 15 Creatinine 1.12 H Estimated GFR/1.73 m2 48 BUN/Creatinine Ratio 13.4 Glucose Level 89 Lactic Acid Level 0.9 Calcium Level 8.5 Pro-B-Type Natriuretic Peptide 220 H Albumin 3.4 Chemistry Comments Microbiology Date/Time Source Procedure Growth Status 05/13/25 09:26 Blood Arm Left Blood Culture - Preliminary NEGATIVE (LESS THAN 24 HOURS) Resulted Medical Decision Making Findings Patient's laboratory values were very reassuring. Her x-ray per my interpretation did present with concerns over chronic atelectasis likely secondary to COPD she does not present in acute distress. Treated with the azithromycin and a prescription of tapering prednisone. Of for treatment and observation and evaluation in the outpatient setting Differential Dx:Considerations: Include: anemia, CVA, dehydration, dysrhythmia, electrolyte imbalance, encephalopathy, Guillain-[place], hypoglycemia, hypo tension, hypovolemia, labyrinthitis, Meniere's disease, myasathenia gravis, myocardial infarction, pulmonary embolus, renal failure, respiratory failure, TIA, VBI, vertigo central, vertigo peripheral, vestibular neuronitis, other Departure Disposition: 01 HOME / SELF CARE / HOMELESS Impression: Primary Impression: Viral infection Additional Impression: COPD (chronic obstructive pulmonary disease) Condition: Stable Discharge Instructions: Viral Illness Referrals: NO PRIMARY CARE PROVIDER (PCP) Prescriptions Prednisone (Prednisone) 10 Mg Tablet 1 TAB PO BID for 5 Days, #10 TAB Prov: SELVIN TARANGO NP 05/13/25 Azithromycin (Azithromycin) 250 Mg Tablet 1 TAB PO UD for 5 Days, #6 TAB 2 the first day followed by 1 for days 2-5 Prov: SELVIN TARANGO NP 05/13/25 Education Educated: Patient Educated regarding: diagnosis Signature Scribe Signature: g Attestation: Scribed for Selvin Tarango Finance Professor by Selvin Lovett NP . 05/13/25 18:14 SELVIN TARANGO NP May 13, 2025 08:54
[2025-05-13 09:46] LABS: BASOPHILS % (AUTO) 0.4 % (0-1); EOSINOPHILS % (AUTO) 0 % (0-6); HEMATOCRIT 39.3 % (35.0-45.0); HEMOGLOBIN 13.3 g/dl (12.0-16.0); LYMPHOCYTES # (AUTO) 1.2 X10'3 (1.1-4.8); LYMPHOCYTES % (AUTO) 20.2 % (21-51); MEAN CORPUSCULAR HGB CONC 33.8 g/dL (33.0-36.5); MEAN CORPUSCULAR VOLUME 88.8 FL (78-98); MEAN PLATELET VOLUME 9.2 FL (7.4-10.4); MONOCYTES # (AUTO) 1.1 X10'3 (0-0.9); MONOCYTES % (AUTO) 19.8 % (2-12); NEUTROPHILS # (AUTO) 3.4 X10'3 (1.8-7.7); NEUTROPHILS % (AUTO) 59.6 % (42-75); PLATELET COUNT 96 X10'3 (140-440); RED BLOOD COUNT 4.43 X10'6 (4.20-5.60); RED CELL DISTRIBUTION WIDTH 14.1 % (11.5-14.5); WHITE BLOOD COUNT 5.7 X10'3 (4.5-11.0)
[2025-05-13] MEDS: normal saline 1000ML IV soln IVB ONE (10:00)
[2025-05-13 10:03] LABS: ALBUMIN 3.4 G/DL (3.4-5.0); ANION GAP 11 (8-16); BLOOD UREA NITROGEN 15 MG/DL (7-18); BUN/CREATININE RATIO 13.4 (10.0-20.0); CALCIUM 8.5 MG/DL (8.5-10.1); CHLORIDE 104 MMOL/L (99-107); CREATININE 1.12 MG/DL (0.40-0.90); GLUCOSE 89 MG/DL (70-104); POTASSIUM 3.9 MMOL/L (3.5-5.1); PRO BRAIN NATRIURETIC PEPTIDE 220 PG/ML (0-125); SODIUM 143 MMOL/L (135-145); TOTAL CARBON DIOXIDE 28.4 MMOL/L (24-32); eCRCL 35 ML/MIN; eGFR 48 ML/MIN
--- NOTE | 2025-05-13 11:10 | RADIOLOGY REPORT ---
CLINICAL INFORMATION: 75 years old, Female; cough. TECHNIQUE: Single AP portable chest radiograph was obtained. COMPARISON: None FINDINGS: Lungs: Lung mild atelectasis in the lung bases. No focal consolidation. No pneumothorax or pleural ef fusion. Hyperaeration of the lungs, may be seen with emphysematous changes. Cardiac: Heart size is within normal limits. Pulmonary vasculature: Unremarkable. Mediastinum/melissa: Unremarkable. Bones: No acute osseous abnormality identified. Other: Stimulator device with lead extending to the midthoracic spine level. IMPRESSION: 1. No evidence of acute disease in the chest. 2. Nonacute findings as described above.
[2025-05-13] MEDS ORDERED: AZIT250T83 PO (11:13)
[2025-05-13] MEDS ORDERED: PRED10TA23 PO (11:13)
[2025-05-13 11:49] VITALS: BP 97/44; PULSE 52; RESP 18; TEMP 100.3; O2SAT 96
== END 2025-05-13 11:51 | disposition home or self-care (01) ==
LOC: ER 07:54
DX: B34.9 Viral infection, unspecified (principal); J44.9 Chronic obstructive pulmonary disease, unspecified; R06.02 Shortness of breath; Z88.6 Allergy status to analgesic agent; Z88.8 Allergy status to other drugs, medicaments and biological substances
CPT/HCPCS: 71045; 80048; 83605; 83880; 85025; 87040; 96360; 99284; J7030